=== PATIENT | male | born 1985 | race Caucasian/White ===

== ENCOUNTER 2019-03-25 12:38 | Inpatient (IN) | payer OTHER ==
[~2019-03-25] VITALS: Ht 190.5 cm; Wt 102.3 kg
[2019-03-25] MEDS ORDERED: ACETAMINOPHEN 325 MG TABLET PO PRN (13:15)
[2019-03-25] MEDS ORDERED: ONDANSETRON HCL 4 MG/2 ML VIAL IVP PRN (13:15)
[2019-03-25] MEDS ORDERED: ACETAMINOPHEN 500 MG TABLET PO ONE (13:15)
[2019-03-25] MEDS ORDERED: 0.9% SODIUM CHLORIDE 10 ML SYRINGE IVP PRN (13:15)
[2019-03-25 14:24] LABS: BASOPHILS % (AUTO) 0.6 % (0.0-2.0); EOSINOPHILS % (AUTO) 0.2 % (1.0-6.0); HEMATOCRIT 37.3 % (41-53); HEMOGLOBIN 12.6 g/dL (13.5-17.5); LYMPHOCYTES # (AUTO) 0.9 K/uL (1.0-4.8); LYMPHOCYTES % (AUTO) 9.6 % (22.0-44.0); MEAN CORPUSCULAR HEMOGLOBIN 26.3 pg (26.0-34.0); MEAN CORPUSCULAR HGB CONC 33.8 G/dL (31.0-37.0); MEAN CORPUSCULAR VOLUME 78 fL (80-100); MONOCYTES # (AUTO) 0.3 K/uL (0.1-1.0); MONOCYTES % (AUTO) 3.5 % (2.0-9.0); NEUTROPHILS # (AUTO) 7.9 K/uL (1.8-7.7); PLATELET COUNT (AUTO) 262 K/uL (150-450); RED BLOOD CELL COUNT(AUTO) 4.79 MIL/uL (4.50-5.90); RED CELL DISTRIBUTION WIDTH 15.3 % (11.5-14.5)
[2019-03-25 14:28] LABS: NEUTROPHILS % (AUTO) 86.1 % (40.0-70.0)
[2019-03-25 14:34] LABS: ANION GAP 7 mmol/L (8-16); CALCIUM, TOTAL 8.8 mg/dL (8.8-10.5); CARBON DIOXIDE 26 mmol/L (22-29); CHLORIDE 101 mmol/L (98-107); CREATININE 0.74 mg/dL (0.60-1.30); GLOMERULAR FILTR. RATE CALC > 60 mL/min (>60); GLUCOSE,RANDOM 102 mg/dL (70-110); SODIUM SERUM 134 mmol/L (136-145)
[2019-03-25 14:40] LABS: ALANINE AMINOTRANSFERASE 49 U/L (12-78); ALBUMIN 3.8 g/dL (3.4-5.0); ALKALINE PHOSPHATASE 103 U/L (46-116); ASPARTATE AMINOTRANSFERASE 35 U/L (15-37); BILIRUBIN,TOTAL 0.7 mg/dL (0.1-1.0); TOTAL PROTEIN, SERUM 7.8 g/dL (6.4-8.2)
[2019-03-25 14:49] LABS: UREA NITROGEN, BLOOD 11 mg/dL (7-18)
[2019-03-25 15:06] VITALS: BP 129/89
[2019-03-25 17:35] LABS: AMPHET/METH SCREEN,URINE POSITIVE (NEGATIVE); BARBITURATE SCREEN, URINE NEGATIVE (NEGATIVE); BENZODIAZEPINES SCREEN,URINE NEGATIVE (NEGATIVE); CANNABINOID SCREEN,URINE NEGATIVE (NEGATIVE); COCAINE SCREEN,URINE NEGATIVE (NEGATIVE); METHADONE SCREEN, URINE NEGATIVE (NEGATIVE); OPIATE SCREEN,URINE POSITIVE (NEGATIVE)
[2019-03-25 17:37] LABS: PHENCYCLIDINE SCREEN,URINE NEGATIVE (NEGATIVE)
[2019-03-25 17:52] LABS: APPEARANCE,URINE CLEAR (CLEAR); BILIRUBIN,URINE NEGATIVE (NEGATIVE); GLUCOSE, URINE (UA) NEGATIVE (NEGATIVE); KETONES,URINE 15 mg/dL (NEGATIVE); LEUKOCYTE ESTERASE ,URINE NEGATIVE (NEGATIVE); NITRATE,URINE NEGATIVE (NEGATIVE); OCCULT BLOOD,URINE NEGATIVE (NEGATIVE); PROTEIN,URINE NEGATIVE (NEGATIVE)
[2019-03-25 20:29] VITALS: BP 118/94
[2019-03-25] MEDS ORDERED: DICYCLOMINE HCL 10 MG CAPSULE PO PRN (21:00)
[2019-03-25] MEDS ORDERED: LORazepam 2 MG/ML VIAL IVP PRN (21:00)
[2019-03-25] MEDS ORDERED: LOPERAMIDE HCL 2 MG CAPSULE PO PRN (21:00)
[2019-03-25] MEDS ORDERED: METOCLOPRAMIDE HCL 5 MG/ML 2 ML VIAL IVP PRN (21:00)
[2019-03-25] MEDS: TEMAZEPAM 15 MG CAPSULE PO SCH (22:27)
[2019-03-26 00:10] VITALS: BP 123/94
[2019-03-26 05:50] VITALS: BP 134/77
[2019-03-26 07:42] VITALS: BP 134/83
[2019-03-26 11:35] VITALS: BP 115/77
[2019-03-26] MEDS ORDERED: SODIUM CHLORIDE 0.9% 1,000 ML IV ONE (13:08)
[2019-03-26 15:32] VITALS: BP 129/75
[2019-03-26 19:50] VITALS: BP 133/80
[2019-03-26] MEDS: TEMAZEPAM 15 MG CAPSULE PO SCH (21:23)
[2019-03-27] VITALS (7 sets, daily range): BP systolic 132–151; BP diastolic 87–101
[2019-03-27] MEDS ORDERED: ONDA-104 PO (12:29)
[2019-03-27] MEDS ORDERED: LOPE-202 PO (12:30)
[2019-03-27] MEDS: TEMAZEPAM 15 MG CAPSULE PO SCH (20:31)
[2019-03-28 05:03] VITALS: BP 131/86
[2019-03-28] MEDS: AmLODIPine BESYLATE 2.5 MG TABLET PO SCH (07:59)
[2019-03-28 08:08] VITALS: BP 129/77
[2019-03-28 11:31] VITALS: BP 123/73
[2019-03-28 16:12] VITALS: BP 132/89
[2019-03-28 19:20] VITALS: BP 147/97
[2019-03-28] MEDS: TEMAZEPAM 15 MG CAPSULE PO SCH (20:47)
[2019-03-28 23:44] VITALS: BP 136/97
[2019-03-29 05:17] VITALS: BP 129/81
[2019-03-29 07:51] VITALS: BP 131/92
[2019-03-29] MEDS: ACETAMINOPHEN/CODEINE 300-15 MG TABLET PO PRN ×2 (07:58→19:44)
[2019-03-29] MEDS: AmLODIPine BESYLATE 2.5 MG TABLET PO SCH (07:58)
[2019-03-29 11:22] VITALS: BP 130/98
[2019-03-29 15:31] VITALS: BP 138/74
[2019-03-29 20:01] VITALS: BP 150/103
[2019-03-29] MEDS: TEMAZEPAM 15 MG CAPSULE PO SCH (20:22)
[2019-03-30] MEDS: AmLODIPine BESYLATE 2.5 MG TABLET PO SCH (08:15)
== END 2019-03-30 10:30 | DRG 897 ==
LOC: EMS 12:41 → 6S 14:07
PROVIDERS: ADMIT Internal Medicine; ATTEND Internal Medicine
DX: F11.23 Opioid dependence with withdrawal (principal); D64.9 Anemia, unspecified; F10.239 Alcohol dependence with withdrawal, unspecified; F17.200 Nicotine dependence, unspecified, uncomplicated; Z78.1 Physical restraint status; Z79.899 Other long term (current) drug therapy
CPT/HCPCS: G0480; J2765; J3411; J3475; J3490; J7030